=== PATIENT | male | born 1960 | race Caucasian/White ===

== ENCOUNTER 2016-11-07 09:45 | Outpatient (RCR) | payer OTHER | END 2016-11-07 12:00 | disposition home or self-care (01) | LOC: PT 09:45 | PROVIDERS: ATTEND Orthopaedic Surgery | DX: M17.11 Unilateral primary osteoarthritis, right knee (principal); Z96.651 Presence of right artificial knee joint; M25.661 Stiffness of right knee, not elsewhere classified ==

== ENCOUNTER → 2017-02-26 | Outpatient (CLI) | payer OTHER | LOC: LAB 07:35 | PROVIDERS: ATTEND Family Medicine | DX: E87.5 Hyperkalemia (principal) | CPT/HCPCS: 36415; 84132 ==